=== PATIENT | male | born 1960 | race Caucasian/White ===

== ENCOUNTER 2021-05-24 08:00 | Day surgery (SDC) | payer BC ==
[2021-05-17 10:57] VITALS: BMI 34.5
[~2021-05-24 08:00] MED LIST: ALPRAZolam 0.25 MG TAB PO PRN; ALPRAZolam 0.5 MG TAB PO PRN; ASPIRIN 325 MG TAB PO STA; ATORVASTATIN 80 MG TAB PO STA; NITROGLYCERIN SL TABS 0.4 MG TAB SUBLINGUAL PRN; SODIUM CHLORIDE 0.9% 1,000 ML in EMPTY BAG 1 BAG IV SCH
[2021-05-24 08:46] LABS: Glucose,Whole Blood 112 mg/dL (75-99)
[2021-05-24 08:52] VITALS: RESP 16; TEMP 98.5
[2021-05-24] MEDS ORDERED: VERAPAMIL 2.5 MG/ML 2 ML AMP ONE (09:05)
[2021-05-24] MEDS ORDERED: LIDOCAINE 1% INJ 10MG/ML (20 ML MDV) ONE (09:05)
[2021-05-24] MEDS ORDERED: HEPARIN SODIUM 1,000 UN/ML (10ML VL) ONE (09:31)
[2021-05-24] MEDS ORDERED: fentaNYL (PF) 50 MCG/ML 2 ML AMP IV ONE (09:33)
[2021-05-24] MEDS ORDERED: LIDOCAINE 1% INJ 10MG/ML (20 ML MDV) SQ ONE (09:33)
[2021-05-24] MEDS ORDERED: MIDAZOLAM 2 MG/2 ML VIAL IV ONE (09:33)
[2021-05-24] MEDS ORDERED: VERAPAMIL SYRINGE (5 MG/10 ML) INTRAARTER ONE (09:36)
[2021-05-24] MEDS ORDERED: HEPARIN SODIUM 1,000 UN/ML (10ML VL) IV ONE (09:38)
[2021-05-24] MEDS ORDERED: IOPAMIDOL-370 125ML BTL INJ ONE (09:55)
[2021-05-24] MEDS ORDERED: RX INFO: IV CONTRAST WAS GIVEN 1 EACH MISC MISCELLANE PRN (11:28)
[2021-05-24] MEDS ORDERED: SODIUM CHLORIDE 0.9% 1,000 ML IV SCH (11:30)
--- NOTE | 2021-05-24 14:26 | CC ---
CARDIAC CATHETERIZATION REPORT INDICATION: Abnormal stress test. PROCEDURE NOTE: After obtaining informed consent, left heart catheterization and coronary angiogram were performed via the right radial artery using a size 4 Kalyan catheters. Patient tolerated the procedure well without any obvious immediate complications. The patient received moderate conscious sedation. Total sedation time was 25 minutes. The patient was given IV fluids because of hypotension following sedation. The right radial artery access was obtained using modified Seldinger technique and under fluoroscopic guidance, the Glidewire was passed into the ascending aorta and catheters were exchanged using the dame wire. FINDINGS: HEMODYNAMICS: Left ventricular end-diastolic pressure is 10 mm. There is no significant gradient across the aortic valve. LEFT VENTRICULOGRAM: Left ventriculogram is not performed. ANGIOGRAPHIC DATA: RIGHT CORONARY ARTERY: Right coronary artery is a small nondominant vessel and is free of significant stenosis. LEFT MAIN CORONARY ARTERY is a normal-sized vessel and is free of significant disease. Divides into large dominant. CIRCUMFLEX CORONARY ARTERY is free of significant disease. LEFT ANTERIOR DESCENDING CORONARY ARTERY: LAD which gives off 2 large caliber diagonal branch that is free of significant disease. The very distal LAD right at the apex appears occluded with a small caliber vessel after the second diag. CONCLUSIONS: 1. Normal left ventricular end-diastolic pressure. 2. Occluded very distal left anterior descending coronary artery. PLAN: Patient will be treated with optimal medical therapy including aspirin, statin, beta sabiha and brian inhibitors. MMODL / IJN: [id number] /
[2021-05-24 17:56] VITALS: BP 120/78; PULSE 84
== END 2021-05-24 14:08 | disposition home or self-care (01) ==
LOC: CATHCVL 08:00
PROVIDERS: ATTEND Internal Medicine Cardiovascular Disease
DX: I25.10 Atherosclerotic heart disease of native coronary artery without angina pectoris (principal); R94.39 Abnormal result of other cardiovascular function study; I10 Essential (primary) hypertension; E11.9 Type 2 diabetes mellitus without complications; Z20.822 Contact with and (suspected) exposure to COVID-19; Z79.84 Long term (current) use of oral hypoglycemic drugs; Z79.82 Long term (current) use of aspirin; Z79.899 Other long term (current) drug therapy
CPT/HCPCS: 93458; 87635; C1894; J2250; J2001; J3010; J1644; Q9967

== ENCOUNTER → 2024-02-05 | Outpatient (CLI) | payer BC ==
--- NOTE | 2024-03-04 13:47 | MR ---
Site ID synapse default Patient Mikhail Black A ID [id number] Age/Gender: 63Y, M Order # N/A Procedure MR brain & IAC wo/w con Date 02/05/2024 6:31:10 PM EXAMINATION TYPE: MR brain and iac wo/w con DATE OF EXAM: 02/16/2024 COMPARISON: None HISTORY: Headaches, right-sided hearing loss TECHNIQUE: Multi planar, multi sequence imaging was performed through the brain. Specialized thin s equences were obtained through the internal auditory canals. Pre-and post gadolinium sequences were obtained as well after administration of 10 cc of Gadavist. FINDINGS: The toro-white junctions, ventricular system, basal cisterns appear unremarkable. Diffusi on-weighted imaging shows no evidence of restricted diffusion. Left anterior pituitary 1.2 cm high FL AIR signal lesion (series 501, image 11). No corresponding enhancement. Left parietal subcortical 1.3 cm FLAIR hyperintense lesion (series 501, image 24). There is an adjacent 5 mm lesion. Additional le ft posterior frontal lobe 5 mm FLAIR hyperintense lesion (series 501, image 24). After administration of gadolinium, no abnormal enhancement is seen. Mild left ethmoid sinus mucosal thickening. Age-appr opriate cerebral parenchymal volume. Remote lacunar injury involving the right cerebellar hemisphere. The internal auditory canal sequences demonstrate no significant irregularity. The 7th cranial nerve s, 8 cranial nerves, and cerebellar pontine angles appear unremarkable. After the administration pamela olinium, no abnormal enhancement is seen within the internal auditory canals. IMPRESSION: 1. No evidence of acute/subacute CVA. 2. No evidence of internal auditory canal abnormality. 3. Few subcortical white matter lesions with largest in the left parietal lobe measuring up to 1.3 cm . No corresponding enhancement. Etiologies include chronic small vessel ischemic disease versus demye linating process versus migraine versus other. 4. 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
== END | disposition home or self-care (01) ==
LOC: RADMRIMAIN 21:30
PROVIDERS: ATTEND Otolaryngology
DX: H90.A21 Sensorineural hearing loss, unilateral, right ear, with restricted hearing on the contralateral side (principal); G93.89 Other specified disorders of brain
CPT/HCPCS: 70553; A9585

== ENCOUNTER 2024-09-03 10:44 | Day surgery (SDC) | payer BC ==
--- NOTE | 2024-09-02 13:41 | HP ---
HISTORY AND PHYSICAL DATE OF SURGERY: 09/03/2024. HISTORY OF PRESENT ILLNESS: Mikhail Black is a 64-year-old gentleman seen with progressive symptomatic left carpal tunnel syndrome. We discussed options. He elected to proceed with decompression of left median nerve. Consent was obtained. PAST MEDICAL HISTORY: Hyperlipidemia, [id number] diabetes. PAST SURGICAL HISTORY: Hip surgery, knee surgery. DAILY MEDICATIONS: 1. Amitriptyline. 2. Farxiga. 3. Lantus insulin. 4. Metformin. 5. Rosuvastatin. 6. Trulicity. ALLERGIES: None. SOCIAL HISTORY: Denies tobacco use. PHYSICAL EVALUATION OF THE LEFT HAND: He has a positive compression. Carpal Tinel is exacerbating numbness, tingling in the median nerve distribution. He does have some subjective numbness of the thumb, index, middle fingers. There is no muscular atrophy. He has good perfusion and good radial pulse is present. 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 EMG revealed carpal tunnel syndrome. IMPRESSION: 1. Left carpal tunnel syndrome. 2. Hypertension. 3. Hyperlipidemia. 4. Insulin-dependent diabetes. PLAN: Decompression of left median nerve. MMODL / IJN: [id number] /
[~2024-09-03 10:44] MED LIST changes: -ALPRAZolam 0.25 MG TAB PO PRN; -ALPRAZolam 0.5 MG TAB PO PRN; -ASPIRIN 325 MG TAB PO STA; -ATORVASTATIN 80 MG TAB PO STA; +HYDROmorphone 0.5 MG/0.5 ML SYRINGE IVP PRN; -NITROGLYCERIN SL TABS 0.4 MG TAB SUBLINGUAL PRN; -SODIUM CHLORIDE 0.9% 1,000 ML in EMPTY BAG 1 BAG IV SCH
[2024-09-03] MEDS: IV FLUID CONTINUATION 1,000 ML IV ONE (11:07)
[2024-09-03 11:33] LABS: Glucose,Whole Blood 122 mg/dL (70-110)
[2024-09-03] MEDS: ONDANSETRON 4 MG/2 ML VIAL IVP ONE (11:36)
[2024-09-03] MEDS: DEXAMETHASONE SOD PHOSPHATE 4 MG/ML 1 ML VIAL IV ONE (11:36)
[2024-09-03] MEDS: LACTATED RINGERS 1,000 ML IV SCH (11:36)
[2024-09-03] MEDS ORDERED: fentaNYL (PF) 50 MCG/ML 2 ML AMP ONE (12:56)
[2024-09-03] MEDS ORDERED: PROPOFOL 10 MG/ML 20 ML VIAL IV ONE (12:56)
[2024-09-03] MEDS ORDERED: MIDAZOLAM 2 MG/2 ML VIAL ONE (12:56)
[2024-09-03] MEDS: BUPIVACAINE (PF) 0.25% 30 ML VIAL SQ ONE (13:10)
--- NOTE | 2024-09-03 13:27 | P.OP ---
Date of Procedure: 09/03/24 Preoperative Diagnosis: Left carpal tunnel syndrome Postoperative Diagnosis: Left carpal tunnel syndrome Procedure(s) Performed: Decompression left median nerve Anesthesia: MAC, local Surgeon: John Bro Estimated Blood Loss (ml): 1 Pathology: none sent Condition: stable Disposition: PACU Indications for Procedure: 64-year-old gentleman seen with symptomatic left carpal tunnel syndrome. After having treatment options discussed, he elected to proceed with decompression left median nerve. Operative Findings: See description of procedure Description of Procedure: Was taken to the operative suite. Received preoperative IV antibiotics. He received IV sedation by the department anesthesia. A well-padded tourniquet placed proximal left upper extremity. Left upper extremity was prepped and draped in the normal sterile orthopedic fashion. The proposed incision site was infiltrated with 10 cc quarter percent plain Marcaine. Once sufficient local anesthesia was noted the extremity is elevated and turning insufflated to 250. I made an incision beginning at the distal volar wrist crease extending distally approximately 3 cm and I with the fourth metacarpal sharply through skin. I dissected down to the transverse carpal ligament. I made a small incision through the transcarpal ligament. I now released the transverse carpal ligament proximally and distally with blunt Metzenbaums. I noted complete release of the transverse carpal ligament and good decompression of the nerve. We had good hemostasis. The wound was irrigated. The skin margins were approximate nylon suture. Sterile dressings were applied followed by loose Webril and Dominic bandage. Tourniquet released with immediate cap refill all digits noted. Patient was awakened and transferred to recovery in stable condition have entire procedure well.
[2024-09-03 14:00] VITALS: BP 123/79; PULSE 89; RESP 16
== END 2024-09-03 14:13 | disposition home or self-care (01) ==
LOC: OR 10:44
PROVIDERS: ATTEND Orthopaedic Surgery
DX: G56.02 Carpal tunnel syndrome, left upper limb (principal); E78.5 Hyperlipidemia, unspecified; E11.9 Type 2 diabetes mellitus without complications; Z79.4 Long term (current) use of insulin
CPT/HCPCS: 64721; J2250; J1100; J2405; J3010; J2704; J0665